=== PATIENT | male | born 1975 | race Caucasian/White ===

== ENCOUNTER 2020-01-23 13:20 | Emergency (ER) | payer SELFPAY ==
[2020-01-23] MEDS ORDERED: Lactated Ringers 1,000 ML IV ONE (13:30)
[2020-01-23] MEDS ORDERED: Famotidine 20 MG/2 ML SDV IVPUSH ONE (13:30)
[2020-01-23] MEDS ORDERED: Ondansetron 4 MG/2 ML SDV IVPUSH ONE (13:30)
[2020-01-23] MEDS ORDERED: cefTRIAXone 1 GM in Sodium Chloride 0.9% 100 ML IV ONE (13:30)
[2020-01-23] MEDS ORDERED: Pantoprazole 40 MG Vial IVPUSH ONE (13:30)
--- NOTE | 2020-01-23 13:30 | EDM.PDOC ---
ED HPI GENERAL MEDICAL PROBLEM - General Chief Complaint: Behavioral/Psych Stated Complaint: hallucinations, recent hospitalization Time Seen by Provider: 01/23/20 13:20 Source of Information: Reports: Patient, EMS, Family (Sister , Shanti, by telephone). Denies: EMS Notes Reviewed (Not available at time of dictation), Old Records (No [facility] records available) History Limitations: Reports: No Limitations - History of Present Illness INITIAL COMMENTS - FREE TEXT/NARRATIVE: The patient was brought to the emergency room via ambulance with appeals examiner accompaniment with no treatment in route. He was apparently just discharged from [facility] in [place] on 01/21 for possible upper GI bleed with episode of mild hematemesis with concomitant possible seizure shortly prior to arrival to this facility. Per history from the sister there was about 1 cup of blood noted. Note that the patient did have an EGD in [place] by his history no apparent esophageal varicosity, ulcer, etc. He denies any alcohol use since hospital discharge, however he has been having both auditory and visual hallucinations shortly prior to arrival and did become somewhat combative and aggressive with his family prior to his sister calling 911. No recent history of abdominal pain, heartburn, nausea, diarrhea, melena, gross hematochezia, or any food intolerance, including fatty foods, etc.. The patient denies any chest pain/pressure, heart flutter, dizziness, orthostasis, orthopnea, diaphoresis, paresthesias, recent decreased exercise tolerance, or any other anginal-type symptoms. He denies any gross hematuria, colic, or UTI symptoms. The patient also denies any recent cough, wheezing, dyspnea, aspiration, etc., although possible fever with temperature not measured. No history of recent headaches, visual changes, diplopia, change in mental status, or other change in neurological status, however note possible seizure versus pseudoseizure postictal sedation fall, head injury, etc. He denies pain or discomfort. Onset: Gradual, Unknown/Unsure Onset Date: 01/23/20 Onset Time: 12:00 Duration: Other (No pain) Location: Reports: Other (No pain) Quality: Reports: Same as Previous Episode Improves with: Reports: None Worsens with: Reports: None Associated Symptoms: Reports: Fever/Chills, Nausea/Vomiting (With hematemesis), Seizure (Possible). Denies: Confusion, Chest Pain, Cough, Diaphoresis, Headaches, Loss of Appetite, Shortness of Breath, Weakness Treatments MINK RANCHER: Reports: Other (see below) (None) - Related Data Allergies Allergy/AdvReac Type Severity Reaction Status Date / Time No Known Allergies Allergy Verified 01/23/20 13:50 Home Meds: Home Meds Nicotine [Nicotine Patch] 21 mg TD ASDIRECTED 01/23/20 [History] Pantoprazole Sodium [Protonix] 40 mg PO DAILY 01/23/20 [History] Past Medical History HEENT History: Reports: Hard of Hearing. Denies: Impaired Vision Cardiovascular History: Denies: Aneurysm, Arrhythmia, Blood Clots/VTE/DVT, CAD, Hypertension, Syncope Respiratory History: Reports: None. Denies: Asthma, COPD, PE Gastrointestinal History: Reports: GERD, GI Bleed, PUD, Other (See Below). Denies: Hepatitis, Pancreatitis Other Gastrointestinal History: Probable upper GI bleed in December 2019 with hospital discharge from [facility] in [place], [place] on 01/22/20. Possible erosive esophagitis with no apparent varicoceles by EGD. Genitourinary History: Reports: None. Denies: Acute Renal Failure, Chronic Renal Insuffiency, Renal Calculus, STD Musculoskeletal History: Reports: Fracture, Other (See Below). Denies: Arthritis, Osteoarthritis Other Musculoskeletal History: Right fourth metacarpal fracture. Neurological History: Reports: None, Other (See Below). Denies: Cerebral Aneurysms, Concussion, CVA, Head Trauma, Migraines, Seizure, TIA Other Neuro History: No known previous history of seizures or DTs despite alcohol history as above. Psychiatric History: Reports: Addiction, Anxiety, Depression, Emotional Problems , Hallucinations, Other (See Below). Denies: Abuse, Victim of, ADD, ADHD, Dementia, Psych Hospitalization(s), PTSD, Suicide Attempt, Suicidal Ideation Other Psychiatric History: History of alcohol abuse since about age 21 with previous outpatient alcohol treatment program. Endocrine/Metabolic History: Denies: Diabetes, Type I, Diabetes, Type II, Hypothyroidism, IDDM Hematologic History: Denies: Anemia, Blood Transfusion(s), Iron Deficiency Immunologic History: Reports: Immunosuppression, Other (See Below). 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 Oncologic (Cancer) History: Reports: None Dermatologic History: Reports: None. Denies: Eczema, Psoriasis - Infectious Disease History Infectious Disease History: Reports: Mononucleosis. Denies: C-Difficile, Meningitis, MRSA, RSV, TB - Past Surgical History Head Surgeries/Procedures: Reports: None HEENT Surgical History: Reports: Adenoidectomy, Tonsillectomy, Other (See Below) . Denies: Myringotomy w Tube(s), Oral Surgery Other HEENT Surgeries/Procedures: Tonsillectomy and adenoidectomy as a child. Cardiovascular Surgical History: Reports: None. Denies: Varicose Respiratory Surgical History: Reports: None. Denies: Thoracentesis GI Surgical History: Reports: EGD, Other (See Below). Denies: Appendectomy, Cholecystectomy, Hernia, Abdominal, Hernia, Inguinal, Hernia Repair/Other Other GI Surgeries/Procedures: EGD in December 2019 with results as above. Male Surgical History: Reports: Circumcision, Other (See Below). Denies: Vasectomy Other Male Surgeries/Procedures: Circumcision as an infant Neurological Surgical History: Reports: None. Denies: C-Spine Musculoskeletal Surgical History: Reports: ORIF. Denies: Arthroscopic Procedure , Carpal Tunnel, Ganglion Cyst, Joint Replacement, Shoulder Surgery Other Musculoskeletal Surgeries/Procedures:: Pin Placement of the right fourth metacarpal bone. Oncologic Surgical History: Reports: None Dermatological Surgical History: Reports: None - Past Imaging History Past Imaging History: Reports: CAT Scan (Possible CT of the head at [facility] in December versus January 2020) Social & Family History - Tobacco Use Smoking Status *Q: Current Every Day Smoker Tobacco Use Within Last Twelve Months: Smokeless Tobacco Years of Tobacco use: 33 Packs/Tins Daily: 0.1 Packs/Tins Daily Comment: Started chewing tobacco at about age 12 with current use of one can per week but previous moderate use Used Tobacco, but Quit: No Smoking Cessation Information Provided To Patient: No (To be provided by accepting physicians at discharge) Second Hand Smoke Exposure: No Second Hand Smoke Education Provided: No - Alcohol Use Alcohol Use History: Yes Days Per Week of Alcohol Use: 7 Number of Drinks Per Day: 10 Number of Drinks Per Day Comment: History of alcohol abuse since age 21 as above with at least 10 shots of hard liquor per day by history from his sister. DWI at age 21 and then in 2018. Outpatient alcohol treatment as above. Total Drinks Per Week: 70 Date of Last Drink: 01/20/20 Date/Time of Last Drink Comment: No alcohol use since hospital discharge on 01/21 Alcohol Use in Last Twelve Months: Yes Alcohol Use Frequency: Binges - Living Situation & Occupation Living situation: Reports: Other (Homeless) Occupation: Unemployed ED ROS GENERAL - Review of Systems Review Of Systems: Comprehensive ROS is negative, except as noted in HPI. ED EXAM, GENERAL - Physical Exam Exam: See Below Exam Limited By: No Limitations General Appearance: Alert, WD/WN, No Apparent Distress, Anxious (Moderate) Eye Exam: Bilateral Eye: EOMI, Normal Fundi, Normal Inspection (No nystagmus), PERRL Ears: Normal External Exam, Normal Canal, Hearing Grossly Normal, Normal TMs Nose: Normal Inspection, Normal Mucosa, No Blood Throat/Mouth: Normal Inspection, Normal Lips, Normal Teeth, Normal Gums, Normal Oropharynx, Normal Voice, No Airway Compromise. No: Dysphagia, Perioral Cyanosis Head: Atraumatic, Normocephalic. No: Facial Swelling, Facial Tenderness, Sinus Tenderness Neck: Normal Inspection, Supple, Non-Tender, Full Range of Motion. No: Carotid Bruit, Lymphadenopathy (L), Lymphadenopathy (R), Thyromegaly Respiratory/Chest: No Respiratory Distress, Lungs Clear, Normal Breath Sounds, No Accessory Muscle Use, Chest Non-Tender. No: Pleural Rub, Retractions Cardiovascular: Normal Peripheral Pulses, Regular Rate, Rhythm, No Edema, No Gallop, No JVD, No Murmur, No Rub. No: Gallop/S3, Gallop/S4, Friction Rub Peripheral Pulses: 2+: Radial (L), Radial (R) GI/Abdominal: Normal Bowel Sounds, Soft, Non-Tender, No Organomegaly, No Distention, No Abnormal Bruit, No Mass, Pelvis Stable. No: Guarding (Male) Exam: Deferred Rectal (Males) Exam: Deferred Back Exam: Normal Inspection, Full Range of Motion. No: CVA Tenderness (L), CVA Tenderness (R), Muscle Spasm Extremities: Normal Inspection, Normal Range of Motion, Non-Tender, No Pedal Edema, Normal Capillary Refill. No: Ashlyn's Sign Neurological: Alert, Oriented, CN II-XII Intact, Normal Cognition, Normal Gait, Normal Reflexes (Negative Babinski's, finger to nose, and pronator rotation tests. No evidence of facial paresis, tongue deviation, orthostasis, etc.. Excellent reverse thought processes.), No Motor/Sensory Deficits, Other (No Postictal sedation noted either by this physician or paramedics) Psychiatric: Anxious (Moderate to severe), Depressed Mood (Moderate to severe) Skin Exam: Warm, Dry, Intact, Normal Color, No Rash. No: Diaphoretic, Ecchymosis, Jaundice, Pallor, Petechiae, Wound/Incision Lymphatic: No Adenopathy EKG INTERPRETATION EKG Date: 01/23/20 Time: 13:50 Rhythm: NSR Rate (Beats/Min): 97 Garita: Normal (Left) P-Wave: Present QRS: Normal (0.09 seconds mild repolarization changes) ST-T: Normal (T-wave inversion in leads 3 and V1) QT: Normal MS/PQ Interval: 0.17 seconds with mild poor R-wave progression in the anterior leads Comparison: NA - No Prior EKG EKG Interpretation Comments: No acute ischemic changes Course - Vital Signs Last Recorded V/S: Last Vital Signs Temp 37.4 C 01/23/20 13:27 Pulse 76 01/23/20 14:56 Resp 20 01/23/20 14:56 BP 115/75 01/23/20 14:56 Pulse Ox 98 01/23/20 14:56 Vital Signs - 24 hr 01/23/20 01/23/20 01/23/20 13:27 13:41 13:56 Temperature [ 37.4 C Oral] Pulse, 107 H 105 H 101 H Peripheral [ Pulse Oximetry] Respiratory 20 18 19 Rate Blood Pressure 145/92 H 140/87 130/76 [Left Upper Arm ] O2 Sat by Pulse 96 97 98 Oximetry 01/23/20 01/23/20 14:26 14:56 Temperature [ Oral] Pulse, 87 76 Peripheral [ Pulse Oximetry] Respiratory 20 20 Rate Blood Pressure 126/78 115/75 [Left Upper Arm ] O2 Sat by Pulse 98 98 Oximetry - Orders/Labs/Meds Orders: Active Orders 24 hr Category Date Time Status Cardiac Monitoring [RC] . DIRECTED Care 01/23/20 14:29 Active EKG Documentation Completion [RC] ASDIRECTED Care 01/23/20 13:35 Active Peripheral IV Care [RC] . DIRECTED Care 01/23/20 13:32 Active Nothing Per Oral Diet [DIET] Diet 01/23/20 Breakfast Active Abdomen Series w Chest 1V [CR] Stat Exams 01/23/20 13:31 Taken PROLACTIN [REF] Stat Lab 01/23/20 13:40 Received Sodium Chloride 0.9% [Saline Flush] Med 01/23/20 13:30 Active 10 ml FLUSH ASDIRECTED PRN Obtain Past Medical Record [OM.PC] Urgent Oth 01/23/20 13:31 Active Peripheral IV Insertion Adult [OM.PC] Stat Oth 01/23/20 13:31 Ordered Resuscitation Status Stat Resus Stat 01/23/20 13:30 Ordered Medication Orders Sodium Chloride (Saline Flush) 10 ml FLUSH ASDIRECTED PRN PRN Reason: Keep Vein Open Last Admin: 01/23/20 14:27 Dose: 10 ml Admin: 01/23/20 14:18 Dose: 10 ml Labs: Laboratory Tests 01/23/20 01/23/20 01/23/20 Range/Units 13:40 13:40 13:40 WBC 7.6 (4.0-10.2) K/uL RBC 3.12 L (4.33-5.41) M/uL Hgb 10.3 L (13.1-16.8) g/dL Hct 29.2 L (39.0-49.0) % MCV 93.6 (84.0-98.0) fL MCH 33.0 (28.2-33.3) pg MCHC 35.3 (31.7-36.0) g/dL RDW 13.8 (11.2-14.1) % Plt Count 110 L (150-350) K/uL Neut % (Auto) 81.3 H (45.0-80.0) % Lymph % (Auto) 12.0 (10.0-50.0) % Mifflin % (Auto) 6.1 (2.0-14.0) % Eos % (Auto) 0.5 (0.0-5.0) % Baso % (Auto) 0.1 (0.0-2.0) % Neut # (Auto) 6.15 (1.40-7.00) K/uL Lymph # (Auto) 0.91 (0.50-3.50) K/uL Mifflin # (Auto) 0.46 (0.00-1.00) K/uL Eos # (Auto) 0.04 (0.00-0.50) K/uL Baso # (Auto) 0.01 (0.00-0.20) K/uL PT 10.4 (9.5-12.0) SEC INR 1.0 APTT 23.3 L (24.5-32.8) SEC Sodium (136-145) mmol/L Potassium (3.5-5.1) mmol/L Chloride (98-107) mmol/L Carbon Dioxide (21.0-32.0) mmol/L BUN (7-18) mg/dL Creatinine (0.51-1.17) mg/dL Est Cr Clr Drug Dosing mL/min Estimated GFR (MDRD) mL/min Glucose (74-106) mg/dL Lactic Acid (0.4-2.0) mmol/L Uric Acid (2.6-7.2) mg/dL Calcium (8.5-10.1) mg/dL Magnesium (1.8-2.4) mg/dL Total Bilirubin (0.2-1.0) mg/dL AST (15-37) U/L ALT (12-78) U/L Alkaline Phosphatase (46-116) IU/L Total Protein (6.4-8.2) g/dL Albumin (3.4-5.0) g/dL Amylase 60 (25-115) U/L Lipase (73-393) U/L TSH, Ultra Sensitive (0.358-3.740) mIU/mL Ethyl Alcohol (0.000-0.080) g/dL 01/23/20 01/23/20 Range/Units 13:40 13:40 WBC (4.0-10.2) K/uL RBC (4.33-5.41) M/uL Hgb (13.1-16.8) g/dL Hct (39.0-49.0) % MCV (84.0-98.0) fL MCH (28.2-33.3) pg MCHC (31.7-36.0) g/dL RDW (11.2-14.1) % Plt Count (150-350) K/uL Neut % (Auto) (45.0-80.0) % Lymph % (Auto) (10.0-50.0) % Mifflin % (Auto) (2.0-14.0) % Eos % (Auto) (0.0-5.0) % Baso % (Auto) (0.0-2.0) % Neut # (Auto) (1.40-7.00) K/uL Lymph # (Auto) (0.50-3.50) K/uL Mifflin # (Auto) (0.00-1.00) K/uL Eos # (Auto) (0.00-0.50) K/uL Baso # (Auto) (0.00-0.20) K/uL PT (9.5-12.0) SEC INR APTT (24.5-32.8) SEC Sodium 137 (136-145) mmol/L Potassium 3.0 L (3.5-5.1) mmol/L Chloride 104 (98-107) mmol/L Carbon Dioxide 20.6 L (21.0-32.0) mmol/L BUN 11 (7-18) mg/dL Creatinine 0.93 (0.51-1.17) mg/dL Est Cr Clr Drug Dosing 89.09 mL/min Estimated GFR (MDRD) > 60 mL/min Glucose 105 (74-106) mg/dL Lactic Acid 1.6 (0.4-2.0) mmol/L Uric Acid 8.2 H (2.6-7.2) mg/dL Calcium 7.7 L (8.5-10.1) mg/dL Magnesium 2.0 (1.8-2.4) mg/dL Total Bilirubin 0.4 (0.2-1.0) mg/dL AST 49 H (15-37) U/L ALT 37 (12-78) U/L Alkaline Phosphatase 70 (46-116) IU/L Total Protein 7.1 (6.4-8.2) g/dL Albumin 3.3 L (3.4-5.0) g/dL Amylase (25-115) U/L Lipase 337 (73-393) U/L TSH, Ultra Sensitive 3.864 H (0.358-3.740) mIU/mL Ethyl Alcohol 0.000 (0.000-0.080) g/dL Meds: Medications Generic Name Dose Route Start Last Admin Trade Name Sherine PRN Reason Stop Dose Admin Sodium Chloride 10 ml 01/23/20 13:30 01/23/20 14:27 Saline Flush FLUSH 10 ml ASDIRECTED PRN Administration Keep Vein Open Discontinued Medications Generic Name Dose Route Start Last Admin Trade Name Sherine PRN Reason Stop Dose Admin Famotidine 40 mg 01/23/20 13:30 01/23/20 14:26 Pepcid IVPUSH 01/23/20 13:31 40 mg ONETIME ONE Administration Haloperidol Lactate 1 mg 01/23/20 13:32 01/23/20 14:23 Haldol IVPUSH 01/23/20 13:33 1 mg ONETIME ONE Administration Ceftriaxone Sodium 1 gm/ 100 mls @ 200 mls/hr 01/23/20 13:30 01/23/20 14:34 Sodium Chloride IV 01/23/20 13:59 200 mls/hr ONETIME ONE Administration Lactated Ringer's 1,000 mls @ 999 mls/hr 01/23/20 13:30 01/23/20 14:34 Ringers, Lactated IV 01/23/20 14:30 999 mls/hr .BOLUS ONE Administration Lorazepam 1 mg 01/23/20 13:33 01/23/20 13:59 Ativan IVPUSH 01/23/20 13:34 1 mg ONETIME ONE Administration Ondansetron HCl 4 mg 01/23/20 13:30 01/23/20 14:19 Zofran IVPUSH 01/23/20 13:31 4 mg ONETIME ONE Administration Pantoprazole Sodium 40 mg 01/23/20 13:30 01/23/20 13:58 Protonix Iv IVPUSH 01/23/20 13:31 40 mg ONETIME ONE Administration - Radiology Interpretation Free Text/Narrative:: Marine Operations Coordinator shows normal sinus rhythm in the 80-90s with no ectopy or arrhythmia Acute abdominal x-rays shows no evidence of cardiomegaly, CHF, pulmonary infiltrates, COPD, pneumothorax, free air, ileus, obstruction, etc., however foreign bodies 2 of unknown etiology possibly in the GI tract with no external substances noted. Preliminary telephone consultation with the radiology department at 14:40 hours notifying me of these foreign bodies, which I did notice at time of my initial evaluation. CT Results Date: 01/23/20 CT Results Time: 14:40 Departure - Departure Time of Disposition: 15:21 Disposition: DC/Tfer to Acute Hospital 02 Condition: Fair Clinical Impression: Alcohol abuse, Hallucinations, Tobacco abuse counseling, Mixed anxiety depressive disorder, Seizure, Hypokalemia, Hyperuricemia, Hypocalcemia GERD (gastroesophageal reflux disease) Qualifiers: Esophagitis presence: with esophagitis Qualified Code(s): K21.0 - Gastro- esophageal reflux disease with esophagitis Anemia Qualifiers: Anemia type: other cause Other causes of anemia: acute posthemorrhagic Qualified Code(s): D62 - Acute posthemorrhagic anemia - Discharge Information *PRESCRIPTION DRUG MONITORING PROGRAM REVIEWED*: Not Applicable *COPY OF PRESCRIPTION DRUG MONITORING REPORT IN PATIENT DARY: Not Applicable Referrals: PCP,Unknown [Primary Care Provider] - Forms: ED Department Discharge, Interfacility Transfer EMTALA Sepsis Event Note - Focused Exam Vital Signs: Vital Signs Temp Pulse Resp BP Pulse Ox 01/23/20 14:56 76 20 115/75 98 01/23/20 14:26 87 20 126/78 98 01/23/20 13:56 101 H 19 130/76 98 01/23/20 13:41 105 H 18 140/87 97 01/23/20 13:27 37.4 C 107 H 20 145/92 H 96 Date Exam was Performed: 01/23/20 Time Exam was Performed: 15:48 - Problem List & Annotations (1) GERD (gastroesophageal reflux disease) SNOMED Code(s): 091163732 Code(s): K21.9 - GASTRO-ESOPHAGEAL REFLUX DISEASE WITHOUT ESOPHAGITIS Status: Acute Priority: High Onset Date: ~01/20/20 Annotation/Comment:: Note recurrent hematemesis as below, including shortly prior to arrival to this facility. Apparent EGD as below. High-dose IV Pepcid and IV Protonix given in the emergency room with additional initiation of IV Rocephin secondary to patient's low-grade fever. He did not have an opportunity to fill the high-dose Protonix prescription after hospital discharge as above. Telephone consultation at 14:[address] Berman, hospitalist at [facility], who does accept the patient for direct admission, with no further treatment recommendations given. Note evidence of 2 metallic foreign bodies of unknown etiology possibly in the GI tract as above, however the patient denies any intentional ingestion of materials, etc.. Vital signs and physical exam were stable at time of transfer. Ambulance transfer with appeals examiner accompaniment. IV lactated Ringer's by IV bolus to be given in route after completion of his IV Rocephin secondary to hypokalemia as below. Note low-grade fever with no other signs of infection. Apparent negative recent COVID-19 screen in [place], however records not available. Qualifiers: Esophagitis presence: with esophagitis Qualified Code(s): K21.0 - Gastro- esophageal reflux disease with esophagitis (2) Anemia SNOMED Code(s): 820948002 Code(s): D64.9 - ANEMIA, UNSPECIFIED Status: Acute Priority: High Onset Date: ~01/23/20 Annotation/Comment:: Mild anemia with apparent history of recurrent hematemesis prior to hospitalization at [facility] in [facility] with discharge that facility on 01/22/20. EGD was apparently performed with evidence of probable esophagitis, however no apparent varices, gastric ulcer, etc.. Accepting providers should obtain records from the above hospitalization for further workup and/or GI consultation depending on his clinical course. Qualifiers: Anemia type: other cause Other causes of anemia: acute posthemorrhagic Qualified Code(s): D62 - Acute posthemorrhagic anemia (3) Seizure SNOMED Code(s): 50324957 Code(s): R56.9 - UNSPECIFIED CONVULSIONS Status: Acute Priority: High Onset Date: 01/23/20 Annotation/Comment:: Possible seizure versus pseudoseizure with known history of alcohol abuse, however no previous history of seizures, DTs, etc. No history of fall, injury, postictal sedation, neurological deficits, etc.. The patient apparently had a CT of the head in [place] prior to recent hospital discharge with records to be obtained by accepting providers. Further neurological consultation, workup, etc. per his clinical course. Low-dose IV Ativan given as seizure prophylaxis and for treatment of his emotional status as below. (4) Alcohol abuse SNOMED Code(s): 62739914 Code(s): F10.10 - ALCOHOL ABUSE, UNCOMPLICATED Status: Chronic Priority: High Annotation/Comment:: Alcohol treatment per patient and his family's request as above (5) Hallucinations SNOMED Code(s): 6508634 Code(s): R44.3 - HALLUCINATIONS, UNSPECIFIED Status: Acute Priority: High Onset Date: 01/23/20 Annotation/Comment:: Low-dose IV Haldol and IV Ativan given in the emergency room as above. (6) Mixed anxiety depressive disorder SNOMED Code(s): 284089168 Code(s): F41.8 - OTHER SPECIFIED ANXIETY DISORDERS Status: Chronic Priority: High Annotation/Comment:: Note significant alcohol abuse history as above. Per history from his sister patient has been homeless for the last few years with little family contact. The patient just found out yesterday after hospital discharge that his significant other from her alcohol and illicit drug abuse. The patient denies using any illicit drugs either currently or in the past despite this use by his significant other. Emotional support provided both to the patient and his sister by telephone. The family is requesting that the patient be treated for alcohol abuse and his anxiety depressive disorder either at [facility] and/or [place]. The patient denies suicidal ideation at this time, however he was combative and aggressive with his family prior to transfer to this facility. Mild TSH elevation with consideration of low-dose Synthroid supplementation and repeat TSH in about 4 weeks. (7) Tobacco abuse counseling SNOMED Code(s): 973525698, 085906069, 119506333 Code(s): Z71.6 - TOBACCO ABUSE COUNSELING Status: Chronic Priority: Medium Annotation/Comment:: Chewing tobacco cessation information of the provided at discharge from the accepting facility. His main treatment issue is alcohol abuse at this time, however. (8) Hyperuricemia SNOMED Code(s): 63054742 Code(s): E79.0 - HYPERURICEMIA W/O SIGNS OF INFLAM ARTHRIT AND TOPHACEOUS DIS Status: Acute Priority: Medium Onset Date: 01/23/20 Annotation/ Comment:: Likely secondary to his alcohol abuse. Observe for now. No significant arthritic complaints, gout attack, etc. (9) Hypocalcemia SNOMED Code(s): 7876236 Code(s): E83.51 - HYPOCALCEMIA Status: Acute Priority: Medium Onset Date: 01/23/20 Annotation/Comment:: Observe for now. (10) Hypokalemia SNOMED Code(s): 68442019 Code(s): E87.6 - HYPOKALEMIA Status: Acute Priority: High Onset Date: 01/23/20 Annotation/Comment:: Secondary to his alcohol abuse and emesis as above. IV lactated Ringer's in route as above. - Problem List Review Problem List Initiated/Reviewed/Updated: Yes - My Orders Last 24 Hours: My Active Orders 01/23/20 13:30 Sodium Chloride 0.9% [Saline Flush] 10 ml FLUSH ASDIRECTED PRN Resuscitation Status Stat 01/23/20 13:31 Abdomen Series w Chest 1V [CR] Stat Obtain Past Medical Record [OM.PC] Urgent Peripheral IV Insertion Adult [OM.PC] Stat 01/23/20 13:32 Peripheral IV Care [RC] . DIRECTED 01/23/20 13:35 EKG Documentation Completion [RC] ASDIRECTED 01/23/20 13:40 PROLACTIN [REF] Stat 01/23/20 14:29 Cardiac Monitoring [RC] . DIRECTED 01/23/20 Breakfast Nothing Per Oral Diet [DIET] - Assessment/Plan Last 24 Hours: My Active Orders 01/23/20 13:30 Sodium Chloride 0.9% [Saline Flush] 10 ml FLUSH ASDIRECTED PRN Resuscitation Status Stat 01/23/20 13:31 Abdomen Series w Chest 1V [CR] Stat Obtain Past Medical Record [OM.PC] Urgent Peripheral IV Insertion Adult [OM.PC] Stat 01/23/20 13:32 Peripheral IV Care [RC] . DIRECTED 01/23/20 13:35 EKG Documentation Completion [RC] ASDIRECTED 01/23/20 13:40 PROLACTIN [REF] Stat 01/23/20 14:29 Cardiac Monitoring [RC] . DIRECTED 01/23/20 Breakfast Nothing Per Oral Diet [DIET] Assessment:: As above Plan: As above.
[2020-01-23] MEDS ORDERED: Haloperidol Lactate 5 MG/ML SDV IVPUSH ONE (13:32)
[2020-01-23] MEDS ORDERED: LORazepam 2 MG/ML SDV IVPUSH ONE (13:33)
[2020-01-23 14:07] LABS: PTT,PARTIAL THROMBOPLSTIN TIME 23.3 SEC (24.5-32.8)
[2020-01-23] MEDS: Sodium Chloride 0.9% 10 ML Syringe FLUSH PRN ×2 (14:18→14:27)
[2020-01-23 14:20] LABS: CHLORIDE,CL 104 mmol/L (98-107); SODIUM,NA 137 mmol/L (136-145)
== END 2020-01-23 15:21 ==
LOC: LL.ED 13:20
DX: R44.3 Hallucinations, unspecified (principal); F41.8 Other specified anxiety disorders; F10.10 Alcohol abuse, uncomplicated; R56.9 Unspecified convulsions; E87.6 Hypokalemia; E79.0 Hyperuricemia without signs of inflammatory arthritis and tophaceous disease; E83.51 Hypocalcemia; K21.0 Gastro-esophageal reflux disease with esophagitis; D62 Acute posthemorrhagic anemia; F17.210 Nicotine dependence, cigarettes, uncomplicated; Z71.6 Tobacco abuse counseling; K21.9 Gastro-esophageal reflux disease without esophagitis; Z79.899 Other long term (current) drug therapy
CPT/HCPCS: 36415; 74022; 80053; 80307; 82150; 83605; 83690; 83735; 84146; 84443; 84550; 85025; 85610; 85730; 93005; 96365; 96375; 99285-25; C9113; J0696; J1630; J2060; J2405; J3490; J7050; J7120

== ENCOUNTER 2020-04-01 17:24 | Emergency (ER) | payer BC ==
[2020-04-01] MEDS ORDERED: Lactated Ringers 1,000 ML IV ONE (17:42)
[2020-04-01] MEDS ORDERED: Pantoprazole 40 MG Vial IVPUSH ONE (17:42)
[2020-04-01] MEDS ORDERED: Famotidine 20 MG/2 ML SDV IVPUSH ONE (17:42)
--- NOTE | 2020-04-01 17:44 | EDM.PDOC ---
ED HPI GENERAL MEDICAL PROBLEM - General Chief Complaint: Drug or Alcohol Abuse Stated Complaint: intoxication Time Seen by Provider: 04/01/20 17:40 Source of Information: Reports: Patient, Family (Father), Old Records ([facility] EMR. No paper hospital chart available.) History Limitations: Reports: Intoxication - History of Present Illness INITIAL COMMENTS - FREE TEXT/NARRATIVE: The patient was brought to the emergency room via private automobile by a friend, Calvin Vang, secondary to severe intoxication, with patient being a poor historian secondary to his current intoxication. He apparently drank at least 2 bottles of wine and about 750 ml of straight vodka earlier today with frequent intoxication since discharge from [facility] in [place] about one month ago. He has been living with his father since that time with the patient unaware until now that he had a relapse in his alcohol abuse. He denies any pain or discomfort, including abdominal pain, etc. despite his previous history of GI bleed as below. The patient also denies any recent fever, cough, wheezing, dyspnea, etc.. He denies any pain or discomfort. No apparent history of fall, head injury, etc. Onset: Today, Unknown/Unsure Duration: Getting Worse Quality: Reports: Same as Previous Episode Severity: Severe (Intoxication) Improves with: Reports: None Worsens with: Reports: None Context: Reports: Other (As above). Denies: Sick Contact, Trauma Associated Symptoms: Reports: No Other Symptoms. Denies: Confusion, Fever/Chills, Headaches, Nausea/Vomiting, Shortness of Breath Treatments TECHNICAL ACCOUNT EXECUTIVE: Reports: Other (see below) (None) - Related Data Allergies Allergy/AdvReac Type Severity Reaction Status Date / Time No Known Allergies Allergy Verified 04/01/20 17:25 Home Meds: Home Meds Pantoprazole Sodium [Protonix] 40 mg PO DAILY 01/23/20 [History] Past Medical History HEENT History: Reports: Hard of Hearing. Denies: Impaired Vision Cardiovascular History: Reports: None. Denies: Aneurysm, Arrhythmia, Blood Clots/VTE/DVT, CAD, Hypertension, Syncope Respiratory History: Reports: None. Denies: Asthma, COPD, PE Gastrointestinal History: Reports: GERD, GI Bleed, PUD, Other (See Below). Denies: Hepatitis, Pancreatitis Other Gastrointestinal History: Probable upper GI bleed in December 2019 with hospital discharge from [facility] in [place], [place] on 01/22/20. Possible erosive esophagitis with no apparent varicoceles by EGD. Genitourinary History: Reports: None. Denies: Acute Renal Failure, Chronic Renal Insuffiency, Renal Calculus, STD Musculoskeletal History: Reports: Fracture, Gout, Other (See Below). Denies: Arthritis, Osteoarthritis Other Musculoskeletal History: Right fourth metacarpal fracture. Neurological History: Reports: Seizure, Other (See Below). Denies: Cerebral Aneurysms, Concussion, CVA, Head Trauma, Migraines, TIA Other Neuro History: Possible seizure versus pseudoseizure on 01/23/20 with no known previous history of seizures or DTs despite alcohol abuse history. Psychiatric History: Reports: Addiction, Anxiety, Depression, Emotional Problems, Hallucinations, Other (See Below). Denies: Abuse, Victim of, ADD, ADHD, Dementia, Psych Hospitalization(s), PTSD, Suicide Attempt, Suicidal Ideation Other Psychiatric History: History of alcohol abuse since about age 21 with previous outpatient alcohol treatment program and previous 30 day inpatient alcohol and psychiatric treatment at [facility] in January 2020. Hallucinations secondary to alcohol abuse in early 2019. Endocrine/Metabolic History: Reports: Hypokalemia, Other (See Below) Other Endocrine/Metabolic History: Hypocalcemia. Hematologic History: Denies: Anemia, Heparin Induced Thrombocytopenia, Iron Deficiency Immunologic History: Reports: Immunosuppression, Other (See Below). Denies: AIDS, HIV, SLE Other Immunologic History: Alcohol abuse. Immunoglobulin deficiency by patient history? Oncologic (Cancer) History: Reports: None Dermatologic History: Reports: None. Denies: Eczema, Psoriasis - Infectious Disease History Infectious Disease History: Reports: Mononucleosis. Denies: C-Difficile, Meningitis, MRSA, RSV, TB - Past Surgical History Head Surgeries/Procedures: Reports: None HEENT Surgical History: Reports: Adenoidectomy, Tonsillectomy, Other (See Below). Denies: Myringotomy w Tube(s), Oral Surgery Other HEENT Surgeries/Procedures: Tonsillectomy and adenoidectomy as a child. Cardiovascular Surgical History: Reports: None. Denies: Varicose Respiratory Surgical History: Reports: None. Denies: Thoracentesis GI Surgical History: Reports: EGD, Other (See Below). Denies: Appendectomy, Cholecystectomy, Hernia, Abdominal, Hernia, Inguinal, Hernia Repair/Other Other GI Surgeries/Procedures: EGD in December 2019 with results as above. Male Surgical History: Reports: Circumcision, Other (See Below). Denies: Vasectomy Other Male Surgeries/Procedures: Circumcision as an infant Neurological Surgical History: Reports: None. Denies: C-Spine Musculoskeletal Surgical History: Reports: ORIF. Denies: Arthroscopic Procedure, Carpal Tunnel, Ganglion Cyst, Joint Replacement, Shoulder Surgery Other Musculoskeletal Surgeries/Procedures:: Pin Placement of the right fourth metacarpal bone. Oncologic Surgical History: Reports: None Dermatological Surgical History: Reports: None - Past Imaging History Past Imaging History: Reports: CAT Scan (Possible CT of the head at [facility] in December versus January 2020) Social & Family History - Tobacco Use Smoking Status *Q: Current Every Day Smoker Tobacco Use Within Last Twelve Months: Snuff/Dip Years of Tobacco use: 33 Packs/Tins Daily: 0.1 Packs/Tins Daily Comment: Start chewing tobacco use at about age 12 with current use of one can per week but previous moderate diffuse. Used Tobacco, but Quit: No Smoking Cessation Information Provided To Patient: No Smoking Cessation Information Given Comment: To be provided by accepting providers. Second Hand Smoke Exposure: No Second Hand Smoke Education Provided: No - Alcohol Use Alcohol Use History: Yes Days Per Week of Alcohol Use: 7 Number of Drinks Per Day: 10 Number of Drinks Per Day Comment: History of alcohol abuse since age 21 with at least 10 shots of hard liquor per day by previous history. DWI at age 21 and then in 2018. Alcohol treatment as above. Total Drinks Per Week: 70 Date of Last Drink: 04/01/20 Alcohol Use in Last Twelve Months: Yes Alcohol Use Frequency: Binges - Living Situation & Occupation Living situation: Reports: (2 children), with Family (Lives with parents since discharge from [facility] in [place] in February 2020. Previous homelessness.) Occupation: Unemployed ED ROS GENERAL - Review of Systems Review Of Systems: Unable To Obtain Reason Not Obtained: Intoxication, patient combativeness ED EXAM, GENERAL - Physical Exam Exam: See Below Exam Limited By: Intoxication General Appearance: Anxious (Severe), Lethargic, Other (Severe intoxication) Head: Atraumatic, Normocephalic. No: Facial Swelling, Facial Tenderness, Sinus Tenderness Neck: Normal Inspection, Supple, Non-Tender, Full Range of Motion. No: Lymphadenopathy (L), Lymphadenopathy (R), Thyromegaly Respiratory/Chest: No Respiratory Distress, Lungs Clear, Normal Breath Sounds, No Accessory Muscle Use, Chest Non-Tender. No: Pleural Rub, Retractions Cardiovascular: Normal Peripheral Pulses, Regular Rate, Rhythm, No Edema, No Gallop, No JVD, No Murmur, No Rub. No: Gallop/S3, Gallop/S4, Friction Rub Peripheral Pulses: 2+: Radial (L), Radial (R) GI/Abdominal: Normal Bowel Sounds, Soft, Non-Tender, No Organomegaly, No Distention, No Abnormal Bruit, No Mass, Pelvis Stable, Other (Possible ascites). No: Guarding (Male) Exam: Deferred Rectal (Males) Exam: Deferred Back Exam: Normal Inspection, Full Range of Motion. No: CVA Tenderness (L), CVA Tenderness (R), Muscle Spasm Extremities: Normal Inspection, Normal Range of Motion, Non-Tender, No Pedal Edema, Normal Capillary Refill. No: Ashlyn's Sign Neurological: Oriented, CN II-XII Intact, Normal Cognition, Normal Reflexes, No Motor/Sensory Deficits, Other (Severe intoxication). No: Normal Gait (Secondary to intoxication) Psychiatric: Anxious (Moderate), Depressed Mood (Severe), Tearful Skin Exam: Warm, Dry, Intact, Normal Color, No Rash. No: Diaphoretic, Ecchymosis, Jaundice, Lymphangitis, Petechiae, Wound/Incision Lymphatic: No Adenopathy Course - Vital Signs Last Recorded V/S: Last Vital Signs Temp 36.5 C 04/01/20 17:29 Pulse 81 04/01/20 17:29 Resp 14 04/01/20 17:29 BP 128/80 04/01/20 17:29 Pulse Ox 98 04/01/20 17:29 Vital Signs - 24 hr 04/01/20 17:29 Temperature [ 36.5 C Temporal] Pulse, 81 Peripheral [ Pulse Oximetry] Respiratory 14 Rate Blood Pressure 128/80 [Left Upper Arm ] O2 Sat by Pulse 98 Oximetry Patient refused further blood pressures, etc. - Orders/Labs/Meds Orders: Active Orders 24 hr Category Date Time Status Cardiac Monitoring [RC] . DIRECTED Care 04/01/20 18:46 Active Peripheral IV Care [RC] . DIRECTED Care 04/01/20 17:43 Active Obtain Past Medical Record [OM.PC] Urgent Oth 04/01/20 17:42 Active Peripheral IV Insertion Adult [OM.PC] Stat Oth 04/01/20 17:42 Ordered Resuscitation Status Stat Resus Stat 04/01/20 17:42 Ordered Labs: Laboratory Tests 04/01/20 04/01/20 04/01/20 Range/Units 17:55 17:55 17:55 WBC 6.1 (4.0-10.2) K/uL RBC 4.78 (4.33-5.41) M/uL Hgb 13.8 D (13.1-16.8) g/dL Hct 41.3 (39.0-49.0) % MCV 86.4 D (84.0-98.0) fL MCH 28.9 (28.2-33.3) pg MCHC 33.4 (31.7-36.0) g/dL RDW 14.1 (11.2-14.1) % Plt Count 201 D (150-350) K/uL Neut % (Auto) 50.7 (45.0-80.0) % Lymph % (Auto) 40.0 (10.0-50.0) % [place] % (Auto) 5.9 (2.0-14.0) % Eos % (Auto) 3.1 (0.0-5.0) % Baso % (Auto) 0.3 (0.0-2.0) % Neut # (Auto) 3.11 (1.40-7.00) K/uL Lymph # (Auto) 2.45 (0.50-3.50) K/uL [place] # (Auto) 0.36 (0.00-1.00) K/uL Eos # (Auto) 0.19 (0.00-0.50) K/uL Baso # (Auto) 0.02 (0.00-0.20) K/uL PT 9.3 L (9.5-12.0) SEC INR 0.9 APTT 24.7 (24.5-32.8) SEC Sodium (136-145) mmol/L Potassium (3.5-5.1) mmol/L Chloride (98-107) mmol/L Carbon Dioxide (21.0-32.0) mmol/L BUN (7-18) mg/dL Creatinine (0.51-1.17) mg/dL Est Cr Clr Drug Dosing Estimated GFR (MDRD) mL/min Glucose (74-106) mg/dL Lactic Acid (0.4-2.0) mmol/L Uric Acid (2.6-7.2) mg/dL Calcium (8.5-10.1) mg/dL Magnesium (1.8-2.4) mg/dL Total Bilirubin (0.2-1.0) mg/dL AST (15-37) U/L ALT (12-78) U/L Alkaline Phosphatase (46-116) IU/L Ammonia (11-32) umol/L Total Protein (6.4-8.2) g/dL Albumin (3.4-5.0) g/dL Amylase 95 (25-115) U/L Lipase (73-393) U/L Urine Opiates Screen (NEGATIVE) Ur Buprenorphine Scrn (NEGATIVE) Ur Oxycodone Screen (NEGATIVE) Ur EDDP (Meth Metab) (NEGATIVE) Ur Barbiturates Screen (NEGATIVE) Ur Tricyclics Screen (NEGATIVE) Ur Amphetamine Screen (NEGATIVE) U Methamphetamines Scrn (NEGATIVE) Urine MDMA Screen (NEGATIVE) U Benzodiazepines Scrn (NEGATIVE) U Cocaine Metab Screen (NEGATIVE) U Marijuana (THC) Screen (NEGATIVE) Ethyl Alcohol (0.000-0.080) g/dL 04/01/20 04/01/20 04/01/20 Range/Units 17:55 17:55 17:55 WBC (4.0-10.2) K/uL RBC (4.33-5.41) M/uL Hgb (13.1-16.8) g/dL Hct (39.0-49.0) % MCV (84.0-98.0) fL MCH (28.2-33.3) pg MCHC (31.7-36.0) g/dL RDW (11.2-14.1) % Plt Count (150-350) K/uL Neut % (Auto) (45.0-80.0) % Lymph % (Auto) (10.0-50.0) % [place] % (Auto) (2.0-14.0) % Eos % (Auto) (0.0-5.0) % Baso % (Auto) (0.0-2.0) % Neut # (Auto) (1.40-7.00) K/uL Lymph # (Auto) (0.50-3.50) K/uL [place] # (Auto) (0.00-1.00) K/uL Eos # (Auto) (0.00-0.50) K/uL Baso # (Auto) (0.00-0.20) K/uL PT (9.5-12.0) SEC INR APTT (24.5-32.8) SEC Sodium 145 (136-145) mmol/L Potassium 4.0 (3.5-5.1) mmol/L Chloride 108 H (98-107) mmol/L Carbon Dioxide 25.6 (21.0-32.0) mmol/L BUN 8 (7-18) mg/dL Creatinine 1.00 (0.51-1.17) mg/dL Est Cr Clr Drug Dosing TNP Estimated GFR (MDRD) > 60 mL/min Glucose 114 H (74-106) mg/dL Lactic Acid 1.6 (0.4-2.0) mmol/L Uric Acid 6.9 (2.6-7.2) mg/dL Calcium 8.3 L (8.5-10.1) mg/dL Magnesium 2.1 (1.8-2.4) mg/dL Total Bilirubin 0.2 (0.2-1.0) mg/dL AST 23 (15-37) U/L ALT 23 (12-78) U/L Alkaline Phosphatase 75 (46-116) IU/L Ammonia 33 H (11-32) umol/L Total Protein 8.5 H (6.4-8.2) g/dL Albumin 4.0 (3.4-5.0) g/dL Amylase (25-115) U/L Lipase 231 (73-393) U/L Urine Opiates Screen (NEGATIVE) Ur Buprenorphine Scrn (NEGATIVE) Ur Oxycodone Screen (NEGATIVE) Ur EDDP (Meth Metab) (NEGATIVE) Ur Barbiturates Screen (NEGATIVE) Ur Tricyclics Screen (NEGATIVE) Ur Amphetamine Screen (NEGATIVE) U Methamphetamines Scrn (NEGATIVE) Urine MDMA Screen (NEGATIVE) U Benzodiazepines Scrn (NEGATIVE) U Cocaine Metab Screen (NEGATIVE) U Marijuana (THC) Screen (NEGATIVE) Ethyl Alcohol 0.430 H (0.000-0.080) g/dL 04/01/20 Range/Units 20:15 WBC (4.0-10.2) K/uL RBC (4.33-5.41) M/uL Hgb (13.1-16.8) g/dL Hct (39.0-49.0) % MCV (84.0-98.0) fL MCH (28.2-33.3) pg MCHC (31.7-36.0) g/dL RDW (11.2-14.1) % Plt Count (150-350) K/uL Neut % (Auto) (45.0-80.0) % Lymph % (Auto) (10.0-50.0) % [place] % (Auto) (2.0-14.0) % Eos % (Auto) (0.0-5.0) % Baso % (Auto) (0.0-2.0) % Neut # (Auto) (1.40-7.00) K/uL Lymph # (Auto) (0.50-3.50) K/uL [place] # (Auto) (0.00-1.00) K/uL Eos # (Auto) (0.00-0.50) K/uL Baso # (Auto) (0.00-0.20) K/uL PT (9.5-12.0) SEC INR APTT (24.5-32.8) SEC Sodium (136-145) mmol/L Potassium (3.5-5.1) mmol/L Chloride (98-107) mmol/L Carbon Dioxide (21.0-32.0) mmol/L BUN (7-18) mg/dL Creatinine (0.51-1.17) mg/dL Est Cr Clr Drug Dosing Estimated GFR (MDRD) mL/min Glucose (74-106) mg/dL Lactic Acid (0.4-2.0) mmol/L Uric Acid (2.6-7.2) mg/dL Calcium (8.5-10.1) mg/dL Magnesium (1.8-2.4) mg/dL Total Bilirubin (0.2-1.0) mg/dL AST (15-37) U/L ALT (12-78) U/L Alkaline Phosphatase (46-116) IU/L Ammonia (11-32) umol/L Total Protein (6.4-8.2) g/dL Albumin (3.4-5.0) g/dL Amylase (25-115) U/L Lipase (73-393) U/L Urine Opiates Screen Negative (NEGATIVE) Ur Buprenorphine Scrn Negative (NEGATIVE) Ur Oxycodone Screen Negative (NEGATIVE) Ur EDDP (Meth Metab) Negative (NEGATIVE) Ur Barbiturates Screen Negative (NEGATIVE) Ur Tricyclics Screen Negative (NEGATIVE) Ur Amphetamine Screen Negative (NEGATIVE) U Methamphetamines Scrn Negative (NEGATIVE) Urine MDMA Screen Negative (NEGATIVE) U Benzodiazepines Scrn Negative (NEGATIVE) U Cocaine Metab Screen Negative (NEGATIVE) U Marijuana (THC) Screen Negative (NEGATIVE) Ethyl Alcohol (0.000-0.080) g/dL Meds: Medications Discontinued Medications Generic Name Dose Route Start Last Admin Trade Name Sherine PRN Reason Stop Dose Admin Diazepam 5 mg 04/01/20 18:03 04/01/20 18:05 Valium IVPUSH 04/01/20 18:04 5 mg ONETIME ONE Administration Diazepam 2.5 mg 04/01/20 18:45 04/01/20 18:49 Valium IVPUSH 04/01/20 18:46 2.5 mg ONETIME ONE Administration Famotidine 40 mg 04/01/20 17:42 04/01/20 18:12 Pepcid IVPUSH 04/01/20 17:43 40 mg ONETIME ONE Administration Haloperidol Lactate 2 mg 04/01/20 19:05 04/01/20 19:19 Haldol IVPUSH 04/01/20 19:06 2 mg ONETIME ONE Administration Lactated Ringer's 1,000 mls @ 999 mls/hr 04/01/20 17:42 04/01/20 18:24 Ringers, Lactated IV 04/01/20 18:42 999 mls/hr .BOLUS ONE Administration Lactated Ringer's 1,000 mls @ 80 mls/hr 04/01/20 20:15 04/01/20 20:02 Ringers, Lactated IV 80 mls/hr ASDIRECTED VOLODYMYR Administration Pantoprazole Sodium 40 mg 04/01/20 17:42 04/01/20 18:12 Protonix Iv IVPUSH 04/01/20 17:43 40 mg ONETIME ONE Administration Sodium Chloride 10 ml 04/01/20 17:42 04/01/20 18:24 Saline Flush FLUSH 10 ml ASDIRECTED PRN Administration Keep Vein Open - Radiology Interpretation Free Text/Narrative:: surveillance system monitor shows normal sinus rhythm with heart rate in the 80s to 90s with no ectopy or arrhythmia. Occasional tachycardia in the low 100s when the patient becomes combative. Departure - Departure Time of Disposition: 20:25 Disposition: DC/Tfer to Acute Hospital 02 Condition: Fair Clinical Impression: Mixed anxiety depressive disorder, Alcohol abuse, Hyperuricemia GERD (gastroesophageal reflux disease) Qualifiers: Esophagitis presence: with esophagitis Qualified Code(s): K21.0 - Gastro- esophageal reflux disease with esophagitis - Discharge Information *PRESCRIPTION DRUG MONITORING PROGRAM REVIEWED*: Not Applicable *COPY OF PRESCRIPTION DRUG MONITORING REPORT IN PATIENT DARY: Not Applicable Referrals: PCP,Unknown [Primary Care Provider] - Forms: Interfacility Transfer [facility] Sepsis Event Note (ED) - Evaluation Sepsis Screening Result: No Definite Risk - Focused Exam Vital Signs: Vital Signs Temp Pulse Resp BP Pulse Ox 04/01/20 17:29 36.5 C 81 14 128/80 98 - Problem List & Annotations (1) Alcohol abuse SNOMED Code(s): 73817217 Code(s): F10.10 - ALCOHOL ABUSE, UNCOMPLICATED Status: Chronic Priority: High Annotation/Comment:: Patient initially combative, uncooperative, and threatening, including throwing pillows at staff, throwing off his mask, refusing treatment, etc.. Improved cooperation, etc. after IV Valium was given. Thereafter the medication became combative and physically threatening his mother and this physician, including threatening to break my finger Repeat low dose diazepam and additional IV Haldol were required prior to transfer. Enforcement was contacted for staff safety. Alcohol treatment per patient and his family's request, however secondary to significant alcohol level the patient is not a candidate for direct admission to [facility] in [place]. Telephone consultation at 18:[address] Mancilla, hospitalist at [facility] in [place], who does accept the patient for direct admission into their [place] campus, with no further treatment recommendations given. Ambulance transfer with councilperson accompaniment. surveillance system monitor and IV lactated Ringer's IV bolus were initiated prior to patient. Vital signs and clinical exam were stable at time of transfer. Secondary to lack of ambulance availability of inpatient transfer without sequelae. No IV diazepam and/or Haldol to be administered by the paramedics under our instructions as needed. (2) Anemia SNOMED Code(s): 603848094 Code(s): D64.9 - ANEMIA, UNSPECIFIED Status: Acute Priority: High Onset Date: ~01/23/20 Annotation/Comment:: Note resolution of previous anemia with hemoglobin of 13.8 today with previous hemoglobin of 10.3 on 01/22/20. Mild anemia with apparent history of recurrent hematemesis prior to hospitalization at [facility] with discharge that facility on 01/22/20. EGD was apparently performed with evidence of probable esophagitis, however no apparent varices, gastric ulcer, etc.. Qualifiers: Anemia type: other cause Other causes of anemia: acute posthemorrhagic Qualified Code(s): D62 - Acute posthemorrhagic anemia (3) GERD (gastroesophageal reflux disease) SNOMED Code(s): 980072799 Code(s): K21.9 - GASTRO-ESOPHAGEAL REFLUX DISEASE WITHOUT ESOPHAGITIS Status: Acute Priority: High Onset Date: ~01/20/20 Annotation/Comment:: Apparent EGD as above. High-dose IV Pepcid and IV Protonix given in the emergency room as GI prophylaxis. Qualifiers: Esophagitis presence: with esophagitis Qualified Code(s): K21.0 - Gastro- esophageal reflux disease with esophagitis (4) Hyperuricemia SNOMED Code(s): 19846434 Code(s): E79.0 - HYPERURICEMIA W/O SIGNS OF INFLAM ARTHRIT AND TOPHACEOUS DIS Status: Acute Priority: Medium Onset Date: 01/23/20 Annotation/Comment:: Likely secondary to his alcohol abuse. Observe for now. No significant arthritic complaints, gout attack, etc. (5) Mixed anxiety depressive disorder SNOMED Code(s): 182455460 Code(s): F41.8 - OTHER SPECIFIED ANXIETY DISORDERS Status: Chronic Priority: High Annotation/Comment:: Note significant alcohol abuse history as above. Per history from his sister on 01/22/20 the patient had been homeless for the last few years with little family contact. Patient has currently been living with his parents after alcohol treatment as above. Likely transfer to [facility] in [place] for stabilization of the patient for further inpatient alcohol treatment, psychiatric treatment, etc.. Emotional support was provided to the patient and his parents. - Problem List Review Problem List Initiated/Reviewed/Updated: Yes - My Orders Last 24 Hours: My Active Orders 04/01/20 17:42 Obtain Past Medical Record [OM.PC] Urgent Peripheral IV Insertion Adult [OM.PC] Stat Resuscitation Status Stat 04/01/20 17:43 Peripheral IV Care [RC] . DIRECTED 04/01/20 18:46 Cardiac Monitoring [RC] . DIRECTED - Assessment/Plan Last 24 Hours: My Active Orders 04/01/20 17:42 Obtain Past Medical Record [OM.PC] Urgent Peripheral IV Insertion Adult [OM.PC] Stat Resuscitation Status Stat 04/01/20 17:43 Peripheral IV Care [RC] . DIRECTED 04/01/20 18:46 Cardiac Monitoring [RC] . DIRECTED Assessment:: As above Plan: As above. Extensive precautions were given to the patient and his parents, who a re in agreement with the treatment plan.
[2020-04-01] MEDS: Sodium Chloride 0.9% 10 ML Syringe FLUSH PRN ×3 (18:06→18:24)
[2020-04-01 18:17] LABS: PTT,PARTIAL THROMBOPLSTIN TIME 24.7 SEC (24.5-32.8)
[2020-04-01 18:29] LABS: CHLORIDE,CL 108 mmol/L (98-107); SODIUM,NA 145 mmol/L (136-145)
[2020-04-01] MEDS ORDERED: Haloperidol Lactate 5 MG/ML SDV IVPUSH ONE (19:05)
[2020-04-01] MEDS ORDERED: Lactated Ringers 1,000 ML IV SCH (20:15)
[2020-04-01 20:38] LABS: BARBITURATE SCREEN,URINE NEGATIVE (NEGATIVE); BENZODIAZEPINES SCREEN,URINE NEGATIVE (NEGATIVE); EDDP,URINE SCREEN NEGATIVE (NEGATIVE); TCA SCREEN,URINE NEGATIVE (NEGATIVE); THC SCREEN,URINE 50 NG/ML NEGATIVE (NEGATIVE)
== END 2020-04-01 20:25 ==
LOC: LL.ED 17:24
DX: F10.129 Alcohol abuse with intoxication, unspecified (principal); Y90.8 Blood alcohol level of 240 mg/100 ml or more; K21.0 Gastro-esophageal reflux disease with esophagitis; E79.0 Hyperuricemia without signs of inflammatory arthritis and tophaceous disease; F41.8 Other specified anxiety disorders; F17.220 Nicotine dependence, chewing tobacco, uncomplicated; F17.290 Nicotine dependence, other tobacco product, uncomplicated; F17.210 Nicotine dependence, cigarettes, uncomplicated; Z79.899 Other long term (current) drug therapy
CPT/HCPCS: 36415; 80053; 80305-QW; 80307; 82140; 82150; 83605; 83690; 83735; 84550; 85025; 85610; 85730; 96374; 96375; 96376; 99284; 99285-25; C9113; J1630; J3360; J3490; J7120

== ENCOUNTER 2021-04-22 17:02 | Emergency (ER) | payer SELFPAY ==
--- NOTE | 2021-04-22 17:22 | EDM.PDOC ---
ED HPI GENERAL MEDICAL PROBLEM - General Chief Complaint: Gastrointestinal Problem Stated Complaint: vomiting, anxiety Time Seen by Provider: 04/22/21 17:13 Source of Information: Reports: Patient, Family - History of Present Illness INITIAL COMMENTS - FREE TEXT/NARRATIVE: Vinayak is a 46 y/o male who is brought to the ER by his mother for nausea and vomiting that started about 1030 this AM. He also is very anxious and states "I've been under alot of stress lately." He does admit to alcohol use yesterday. Denies any drug use. He apparently lives with his parents and he has had some alcohol abuse in the past. He has tried to take a Sertaline today, but vomited it right up. Can't keep anything down. - Related Data Allergies Allergy/AdvReac Type Severity Reaction Status Date / Time No Known Allergies Allergy Verified 04/22/21 17:02 Home Meds: Home Meds Ondansetron [Zofran] 8 mg PO Q8H #10 tab 04/22/21 [Rx] Past Medical History HEENT History: Reports: Hard of Hearing. Denies: Impaired Vision Cardiovascular History: Reports: None. Denies: Aneurysm, Arrhythmia, Blood Clots/VTE/DVT, CAD, Hypertension, Syncope Respiratory History: Reports: None. Denies: Asthma, COPD, PE Gastrointestinal History: Reports: GERD, GI Bleed, PUD, Other (See Below). Denies: Hepatitis, Pancreatitis Other Gastrointestinal History: Probable upper GI bleed in December 2019 with hospital discharge from [facility] in [place], [place] on 01/22/20. Possible erosive esophagitis with no apparent varicoceles by EGD. Genitourinary History: Reports: None. Denies: Acute Renal Failure, Chronic Renal Insuffiency, Renal Calculus, STD Musculoskeletal History: Reports: Fracture, Gout, Other (See Below). Denies: Arthritis, Osteoarthritis Other Musculoskeletal History: Right fourth metacarpal fracture. Neurological History: Reports: Seizure, Other (See Below). Denies: Cerebral Aneurysms, Concussion, CVA, Head Trauma, Migraines, TIA Other Neuro History: Possible seizure versus pseudoseizure on 01/23/20 with no known previous history of seizures or DTs despite alcohol abuse history. Psychiatric History: Reports: Addiction, Anxiety, Depression, Emotional Problems, Hallucinations, Other (See Below). Denies: Abuse, Victim of, ADD, ADHD, Dementia, Psych Hospitalization(s), PTSD, Suicide Attempt, Suicidal Ideation Other Psychiatric History: History of alcohol abuse since about age 21 with previous outpatient alcohol treatment program and previous 30 day inpatient alcohol and psychiatric treatment at [facility] in January 2020. Hallucinations secondary to alcohol abuse in early 2019. Endocrine/Metabolic History: Reports: Hypokalemia, Other (See Below) Other Endocrine/Metabolic History: Hypocalcemia. Immunologic History: Reports: Immunosuppression, Other (See Below). Denies: AIDS, HIV, SLE Other Immunologic History: Alcohol abuse. Immunoglobulin deficiency by patient history? Oncologic (Cancer) History: Reports: None Dermatologic History: Reports: None. Denies: Eczema, Psoriasis - Infectious Disease History Infectious Disease History: Reports: Mononucleosis. Denies: C-Difficile, Meningitis, MRSA, RSV, TB - Past Surgical History Head Surgeries/Procedures: Reports: None HEENT Surgical History: Reports: Adenoidectomy, Tonsillectomy, Other (See Below). Denies: Myringotomy w Tube(s), Oral Surgery Other HEENT Surgeries/Procedures: Tonsillectomy and adenoidectomy as a child. Cardiovascular Surgical History: Reports: None. Denies: Varicose Respiratory Surgical History: Reports: None. Denies: Thoracentesis GI Surgical History: Reports: EGD, Other (See Below). Denies: Appendectomy, Cholecystectomy, Hernia, Abdominal, Hernia, Inguinal, Hernia Repair/Other Other GI Surgeries/Procedures: EGD in December 2019 with results as above. Male Surgical History: Reports: Circumcision, Other (See Below). Denies: Vasectomy Other Male Surgeries/Procedures: Circumcision as an infant Neurological Surgical History: Reports: None. Denies: C-Spine Musculoskeletal Surgical History: Reports: ORIF. Denies: Arthroscopic Procedure, Carpal Tunnel, Ganglion Cyst, Joint Replacement, Shoulder Surgery Other Musculoskeletal Surgeries/Procedures:: Pin Placement of the right fourth metacarpal bone. Oncologic Surgical History: Reports: None Dermatological Surgical History: Reports: None - Past Imaging History Past Imaging History: Reports: CAT Scan (Possible CT of the head at [facility] in December versus January 2020) Social & Family History - Living Situation & Occupation Living situation: Reports: (2 children), with Family (Lives with parents since discharge from [facility] in [place] in February 2020. Previous homelessness.) Occupation: Unemployed Review of Systems - Review of Systems Review Of Systems: See Below Constitutional: Reports: No Symptoms Ears: Reports: No Symptoms Nose: Reports: No Symptoms Mouth/Throat: Reports: No Symptoms Respiratory: Reports: No Symptoms Cardiovascular: Reports: No Symptoms GI/Abdominal: Reports: Nausea, Vomiting Genitourinary: Reports: No Symptoms Musculoskeletal: Reports: No Symptoms Skin: Reports: No Symptoms Neurological: Reports: Tingling (fingers) Psychiatric: Reports: Anxiety ED EXAM, GENERAL - Physical Exam Exam: See Below General Appearance: Alert, WD/WN, Anxious (Adult male, appears to be very anxious adn his hands are shaking. He is crying and barely able to calm down toanswer questions.) Eye Exam: Bilateral Eye: PERRL Ears: Hearing Grossly Normal Nose: Normal Inspection, Normal Mucosa Throat/Mouth: Normal Voice Head: Atraumatic, Normocephalic Neck: Normal Inspection, Supple Respiratory/Chest: No Respiratory Distress, Lungs Clear, Chest Non-Tender Cardiovascular: Normal Peripheral Pulses, Regular Rate, Rhythm GI/Abdominal: Normal Bowel Sounds, Soft, Non-Tender (Male) Exam: Deferred Rectal (Males) Exam: Deferred Back Exam: Normal Inspection Extremities: Normal Inspection, Normal Range of Motion, Normal Capillary Refill Neurological: Alert, Oriented, CN II-XII Intact Psychiatric: Anxious, Tearful Skin Exam: Warm, Dry, Intact Lymphatic: No Adenopathy Course - Vital Signs Text/Narrative:: 1713 The patient was seen by the [facility]. Labs ordered. He was given a liter of NS, Lorazepam 1mg IVP, and & Zofran 4mg IVP. 1800 Feeling better now. Some labs reviewed. Mg=1.6, will replace with MgSO4 1gm IVPB and MagOx 400mg po x 1. WBC=16.4, Neuts=84.9%, some abdominal pain,will obtain CT Abd/pelvis W. CMP reviewed, note Gap 32.6, glucose 155, probable vomiting as cause. Also very anxious yet although improved, but will repeat Lorazepam 1mg IVP. [address] CT results back, no acute findings, notes some distal esophagitis or hiatal hernia, will have pt set up EGD with PCP. Patient much calmer now. GI cocktail has helped with the nausea. Discussed findings with the patient. He was sent home with Zofran rx and written instructions. He left the ER in stable condition with family. - Orders/Labs/Meds Orders: Active Orders 24 hr Category Date Time Status AMYLASE [CHEM] Stat Lab 04/22/21 17:17 Ordered CBC WITH AUTO DIFF [HEME] Stat Lab 04/22/21 17:17 Ordered COMPREHENSIVE METABOLIC PN,CMP [CHEM] Stat Lab 04/22/21 17:17 Ordered DRUG SCREEN, URINE [URCHEM] Stat Lab 04/22/21 17:18 Ordered ETHANOL BLOOD MEDICAL [CHEM] Stat Lab 04/22/21 17:17 Ordered LIPASE [CHEM] Stat Lab 04/22/21 17:17 Ordered MAGNESIUM [CHEM] Stat Lab 04/22/21 17:17 Ordered UA RFX EZIO AND CULT IF INDIC [URIN] Stat Lab 04/22/21 17:17 Ordered Sodium Chloride 0.9% [Normal Saline] 1,000 ml Med 04/22/21 17:19 Ordered IV .BOLUS Sodium Chloride 0.9% [Saline Flush] Med 04/22/21 17:17 Ordered 10 ml FLUSH ASDIRECTED PRN Saline Lock Insert [OM.PC] Stat Oth 04/22/21 17:17 Ordered Medication Orders Sodium Chloride (Normal Saline) 1,000 mls @ 999 mls/hr IV .BOLUS ONE Stop: 04/22/21 18:19 Sodium Chloride (Sodium Chloride 0.9% 10 Ml Syringe) 10 ml FLUSH ASDIRECTED PRN PRN Reason: Keep Vein Open Meds: Medications Generic Name Dose Route Start Last Admin Trade Name Freq PRN Reason Stop Dose Admin Sodium Chloride 1,000 mls @ 999 mls/hr 04/22/21 17:19 Normal Saline IV 04/22/21 18:19 .BOLUS ONE Sodium Chloride 10 ml 04/22/21 17:17 Sodium Chloride 0.9% 10 Ml Syringe FLUSH ASDIRECTED PRN Keep Vein Open Discontinued Medications Generic Name Dose Route Start Last Admin Trade Name Freq PRN Reason Stop Dose Admin Lorazepam 1 mg 04/22/21 17:18 Lorazepam 2 Mg/Ml Sdv IVPUSH 04/22/21 17:19 STAT ONE Ondansetron HCl 4 mg 04/22/21 17:18 Ondansetron 4 Mg/2 Ml Sdv IVPUSH 04/22/21 17:19 ONETIME ONE - Radiology Interpretation Free Text/Narrative:: CT Abd/Pelvis W=no acute findings, notes possible distal esophagitis/hiatal hernia (See final report) Departure - Departure Time of Disposition: 19:53 Disposition: Home, Self-Care 01 Condition: Good Clinical Impression: Anxiety, Epigastric burning sensation, Hypomagnesemia Nausea & vomiting Qualifiers: Vomiting type: unspecified Vomiting Intractability: non-intractable Qualified Code(s): R11.2 - Nausea with vomiting, unspecified - Discharge Information Prescriptions: Ondansetron [Zofran] 8 mg PO Q8H #10 tab Instructions: Nausea and Vomiting, Adult, [id number], Managing Anxiety, Adult Referrals: PCP,None [Primary Care Provider] - Forms: ED Department Discharge Additional Instructions: -Zofran 8mg oral every 8 hours as needed for nausea#10(Rx) -May use OTC Prilosec 20mg oral daily -Your magnesium was low and you were given replacement -Find ways to manage stress and decrease anxiety. If you are unable to do this on your own, seek care from a PCP. -Diet as tolerates -Make an appt with a Primary Care Clinic and you need to have a referral set up for an EGD (Upper Endoscopy) to evaluate you GI symptoms. -Return to the ER as needed - My Orders Last 24 Hours: My Active Orders 04/22/21 17:17 AMYLASE [CHEM] Stat CBC WITH AUTO DIFF [HEME] Stat COMPREHENSIVE METABOLIC PN,CMP [CHEM] Stat ETHANOL BLOOD MEDICAL [CHEM] Stat LIPASE [CHEM] Stat MAGNESIUM [CHEM] Stat UA RFX EZIO AND CULT IF INDIC [URIN] Stat Sodium Chloride 0.9% [Saline Flush] 10 ml FLUSH ASDIRECTED PRN Saline Lock Insert [OM.PC] Stat 04/22/21 17:18 DRUG SCREEN, URINE [URCHEM] Stat 04/22/21 17:19 Sodium Chloride 0.9% [Normal Saline] 1,000 ml IV .BOLUS - Assessment/Plan Last 24 Hours: My Active Orders 04/22/21 17:17 AMYLASE [CHEM] Stat CBC WITH AUTO DIFF [HEME] Stat COMPREHENSIVE METABOLIC PN,CMP [CHEM] Stat ETHANOL BLOOD MEDICAL [CHEM] Stat LIPASE [CHEM] Stat MAGNESIUM [CHEM] Stat UA RFX EZIO AND CULT IF INDIC [URIN] Stat Sodium Chloride 0.9% [Saline Flush] 10 ml FLUSH ASDIRECTED PRN Saline Lock Insert [OM.PC] Stat 04/22/21 17:18 DRUG SCREEN, URINE [URCHEM] Stat 04/22/21 17:19 Sodium Chloride 0.9% [Normal Saline] 1,000 ml IV .BOLUS Assessment:: 1)Nausea & Vomiting 2)Anxiety 3)Hypomagnesia 4)Epigastric Abdominal Pain Plan: As above
[2021-04-22] MEDS: LORazepam 2 MG/ML SDV IVPUSH ONE ×2 (17:30→18:19)
[2021-04-22] MEDS: Ondansetron 4 MG/2 ML SDV IVPUSH ONE (17:30)
[2021-04-22] MEDS: Sodium Chloride 0.9% 1,000 ML IV ONE (17:57)
[2021-04-22 18:02] LABS: CHLORIDE,CL 99 mmol/L (98-107); SODIUM,NA 143 mmol/L (136-145)
[2021-04-22 18:03] LABS: ANION GAP 32.6 meq/L (7-15)
[2021-04-22] MEDS: Thiamine 100 MG in Sodium Chloride 0.9% 100 ML IV ONE (18:17)
[2021-04-22] MEDS ORDERED: Iopamidol 612 MG/ML 100 ML Bottle ONE (18:47)
[2021-04-22] MEDS: Magnesium Oxide 400 MG Tab PO ONE (19:02)
[2021-04-22] MEDS: Magnesium Sulfate/D5W 1 GM/100 ML Premix Bag IV STA (19:02)
[2021-04-22] MEDS: Sodium Chloride 0.9% 10 ML Syringe FLUSH PRN (19:03)
[2021-04-22] MEDS: Iopamidol 612 MG/ML 100 ML Bottle IVPUSH STA (19:08)
[2021-04-22] MEDS: GI Cocktail Oral Solution 30 ML PO ONE (19:38)
[2021-04-23 02:12] LABS: BARBITURATE SCREEN,URINE NEGATIVE (NEGATIVE); BENZODIAZEPINES SCREEN,URINE NEGATIVE (NEGATIVE); EDDP,URINE SCREEN NEGATIVE (NEGATIVE); TCA SCREEN,URINE NEGATIVE (NEGATIVE); THC SCREEN,URINE 50 NG/ML NEGATIVE (NEGATIVE)
[2021-04-23 02:13] LABS: BUPRENORPHINE SCREEN,URINE NEGATIVE (NEGATIVE)
== END 2021-04-22 20:25 | disposition home or self-care (01) ==
LOC: LL.ED 17:02
DX: F41.9 Anxiety disorder, unspecified (principal); E83.42 Hypomagnesemia; R20.8 Other disturbances of skin sensation
CPT/HCPCS: 36415; 74177; 80053; 80305; 80307; 81001; 82150; 83690; 83735; 85025; 96365; 96367; 96375; 96376; 99284; A9270; J2060; J2405; J3411; J3475; J7030; Q9967

== ENCOUNTER 2024-09-15 20:01 | Emergency (ER) | payer SELFPAY ==
[2024-09-15 20:15] LABS: BASOPHILS ABSOLUTE AUTO 0.06 K/uL (0.00-0.20); BASOPHILS PERCENT AUTO 0.3 % (0.0-2.0); HEMATOCRIT 45.3 % (39.0-49.0); HEMOGLOBIN 16.1 g/dL (13.1-16.8); IMMATURE GRAN ABSOLUTE AUTO 0.06 10^3/uL (0.00-0.04); IMMATURE GRAN PERCENT AUTO 0.3 % (0.0-0.4); LYMPHOCYTES ABSOLUTE AUTO 2.53 K/uL (0.50-3.50); LYMPHOCYTES PERCENT AUTO 14.1 % (10.0-50.0); MEAN CORPUSCULAR HEMOGLOBIN 32.9 pg (28.2-33.3); MEAN CORPUSCULAR HGB CONC 35.5 g/dL (31.7-36.0); MEAN CORPUSCULAR VOLUME 92.4 fL (84.0-98.0); MONOCYTES ABSOLUTE AUTO 1.18 K/uL (0.00-1.00); MONOCYTES PERCENT AUTO 6.6 % (2.0-14.0); NEUTROPHILS ABSOLUTE AUTO 14.07 K/uL (1.40-7.00); NEUTROPHILS PERCENT AUTO 78.7 % (45.0-80.0); PLATELET COUNT,PLT 301 K/uL (150-350); RED CELL DISTRIBUTION WIDTH 12.2 % (11.2-14.1); WHITE BLOOD CELL COUNT,WBC 17.9 K/uL (4.0-10.2)
[2024-09-15] MEDS: Promethazine 25 MG/ML SDV IM ONE (20:25)
[2024-09-15] MEDS: Ondansetron 4 MG/2 ML SDV IVPUSH ONE ×2 (20:25→21:14)
[2024-09-15] MEDS: Sodium Chloride 0.9% 1,000 ML IV ONE (20:31)
[2024-09-15 20:44] LABS: ALBUMIN 3.4 g/dL (3.4-5.0); ALKALINE PHOSPHATASE 141 IU/L (46-116); ASPARTATE AMNIOTRANSFERASE,AST 74 U/L (15-37); BILIRUBIN TOTAL 0.9 mg/dL (0.2-1.0); BLOOD UREA NITROGEN,BUN 9 mg/dL (7-18); CALCIUM 9.7 mg/dL (8.5-10.1); CARBON DIOXIDE,CO2 25.7 mmol/L (21.0-32.0); CHLORIDE,CL 92 mmol/L (98-107); CREATININE 1.81 mg/dL (0.51-1.17); GLUCOSE RANDOM 111 mg/dL (70-99); MAGNESIUM 1.6 mg/dL (1.8-2.4); POTASSIUM,K 3.6 mmol/L (3.5-5.1); PROTEIN TOTAL,TP 8.4 g/dL (6.4-8.2); SODIUM,NA 144 mmol/L (136-145)
[2024-09-15 20:46] LABS: ANION GAP 29.9 meq/L (7-15); ESTIMATED GFR 46 mL/min (>=60)
[2024-09-15] MEDS: LORazepam 2 MG/ML SDV IVPUSH ONE ×2 (20:47→23:44)
[2024-09-15] MEDS ORDERED: LORazepam 2 MG/ML SDV IVPUSH ONE (20:49)
[2024-09-15] MEDS: Diltiazem 25 MG/5 ML SDV IVPUSH ONE (20:50)
[2024-09-15] MEDS: Magnesium Sulfate/Water Premix 2 GM in Premix Bag 1 BAG IV ONE (21:00)
[2024-09-15] MEDS: Potassium Bicarbonate/Cit Ac 20 MEQ Effervescent Tab PO ONE ×2 (21:02→22:29)
[2024-09-15] MEDS: Lactated Ringers 1,000 ML IV ONE (21:30)
[2024-09-15 21:33] LABS: ALANINE AMINOTRANSFERASE,ALT 32 U/L (12-78)
[2024-09-15] MEDS: cefTRIAXone 1 GM Vial IVPUSH ONE (22:28)
[2024-09-15] MEDS: Ondansetron 4 MG/2 ML SDV ONE (22:32)
[2024-09-15] MEDS: Promethazine 25 MG/ML SDV ONE (22:32)
[2024-09-15] MEDS: Lactated Ringers 1,000 ML IV SCH (22:54)
[2024-09-15 23:30] LABS: PCO2 VENOUS,POC 38 mmHg (41-51); PH VENOUS,POC 7.51 (7.31-7.41); PO2 VENOUS,POC 58 mmHg
[2024-09-15 23:31] LABS: APPEARANCE,URINE SLIGHTLY CLOUDY; BILIRUBIN,URINE NEGATIVE (NEGATIVE); COLOR,URINE YELLOW; GLUCOSE,URINE NEGATIVE (NEGATIVE); KETONES,URINE 40 mg/dL (NEGATIVE); LEUKOCYTE ESTERASE,URINE NEGATIVE (NEGATIVE); NITRITE,URINE NEGATIVE (NEGATIVE); OCCULT BLOOD,URINE NEGATIVE (NEGATIVE); PROTEIN,URINE 100 mg/dL (NEGATIVE)
[2024-09-15 23:31] LABS: HCO3 VENOUS,POC 30 mmol/L (23-28); O2 SATURATION VENOUS,POC 92 %
[2024-09-15 23:36] LABS: AMPHETAMINES SCREEN, URINE NEGATIVE (NEGATIVE); BARBITURATE SCREEN,URINE NEGATIVE (NEGATIVE); BENZODIAZEPINES SCREEN,URINE POSITIVE (NEGATIVE); COCAINE METABOLITES,URINE NEGATIVE (NEGATIVE); EDDP,URINE SCREEN NEGATIVE (NEGATIVE); METHAMPHETAMINES SCREEN, URINE NEGATIVE (NEGATIVE); TCA SCREEN,URINE NEGATIVE (NEGATIVE); THC SCREEN,URINE 50 NG/ML NEGATIVE (NEGATIVE)
[2024-09-15 23:37] LABS: BUPRENORPHINE SCREEN,URINE NEGATIVE (NEGATIVE); OXYCODONE SCREEN,URINE NEGATIVE (NEGATIVE)
[2024-09-15 23:38] LABS: BACTERIA,URINE RARE /HPF (NONE TO FEW); EPITHELIAL CELLS,URINE RARE /LPF; GRANULAR CASTS,URINE OCCASIONAL; HYALINE CASTS,URINE MODERATE; MUCUS,URINE MANY /LPF (NEGATIVE); RBC,URINE 0-5 /HPF; WBC,URINE 0-5 /HPF
[2024-09-15] MEDS: Diltiazem 25 MG/5 ML SDV ONE (23:41)
[2024-09-15] MEDS: Sodium Chloride 0.9% 10 ML Syringe FLUSH PRN (23:45)
== END 2024-09-15 23:57 ==
LOC: LL.ED 20:01
DX: F10.939 Alcohol use, unspecified with withdrawal, unspecified (principal); R00.0 Tachycardia, unspecified; E86.0 Dehydration
CPT/HCPCS: 36415; 71045; 80053; 80305-QW; 80307; 81001; 82803; 83605; 83735; 85025; 87040; 87428-QW; 93005; 93010; 96361; 96365; 96372; 96375; 96376; 99284; 99285-25; A9270-GY; J0696; J2060; J2405; J2550; J3475; J3490; J7030; J7120

== ENCOUNTER 2025-02-03 00:58 | Emergency (ER) | payer MEDICAID ==
[2025-02-03 01:30] LABS: BASOPHILS ABSOLUTE AUTO 0.05 K/uL (0.00-0.20); BASOPHILS PERCENT AUTO 0.7 % (0.0-2.0); EOSINOPHILS ABSOLUTE AUTO 0.08 K/uL (0.00-0.50); EOSINOPHILS PERCENT AUTO 1.1 % (0.0-5.0); HEMATOCRIT 34.5 % (39.0-49.0); HEMOGLOBIN 12.6 g/dL (13.1-16.8); IMMATURE GRAN ABSOLUTE AUTO 0.01 10^3/uL (0.00-0.04); IMMATURE GRAN PERCENT AUTO 0.1 % (0.0-0.4); LYMPHOCYTES ABSOLUTE AUTO 1.81 K/uL (0.50-3.50); LYMPHOCYTES PERCENT AUTO 24.7 % (10.0-50.0); MEAN CORPUSCULAR HEMOGLOBIN 33.2 pg (28.2-33.3); MEAN CORPUSCULAR HGB CONC 36.5 g/dL (31.7-36.0); MEAN CORPUSCULAR VOLUME 90.8 fL (84.0-98.0); MONOCYTES ABSOLUTE AUTO 0.59 K/uL (0.00-1.00); NEUTROPHILS PERCENT AUTO 65.4 % (45.0-80.0); PLATELET COUNT,PLT 173 K/uL (150-350); RED CELL DISTRIBUTION WIDTH 12.5 % (11.2-14.1); WHITE BLOOD CELL COUNT,WBC 7.3 K/uL (4.0-10.2)
[2025-02-03] MEDS: Potassium Bicarbonate/Cit Ac 20 MEQ Effervescent Tab PO ONE ×5 (01:41→08:50)
[2025-02-03 01:45] LABS: ALANINE AMINOTRANSFERASE,ALT 33 U/L (12-78); ALBUMIN 3.8 g/dL (3.4-5.0); ALKALINE PHOSPHATASE 74 IU/L (46-116); ASPARTATE AMNIOTRANSFERASE,AST 51 U/L (15-37); BILIRUBIN TOTAL 0.9 mg/dL (0.2-1.0); BLOOD UREA NITROGEN,BUN 8 mg/dL (7-18); CALCIUM 9.6 mg/dL (8.5-10.1); CARBON DIOXIDE,CO2 36.6 mmol/L (21.0-32.0); CHLORIDE,CL 93 mmol/L (98-107); CREATININE 1.18 mg/dL (0.51-1.17); ETHANOL BLOOD MEDICAL 0.002 g/dL (0.000-0.080); GLUCOSE RANDOM 97 mg/dL (70-99); MAGNESIUM 1.4 mg/dL (1.8-2.4); SODIUM,NA 135 mmol/L (136-145)
[2025-02-03 01:46] LABS: ANION GAP 7.6 meq/L (7-15); ESTIMATED GFR 76 mL/min (>=60)
[2025-02-03 01:47] LABS: POTASSIUM,K 2.2 mmol/L (3.5-5.1)
[2025-02-03] MEDS ORDERED: NS + KCl 20mEq/L 1,000 ML IV SCH (02:00)
[2025-02-03] MEDS: Magnesium Oxide 400 MG Tab PO ONE (02:11)
[2025-02-03] MEDS: D5 1/2 NS w/ 20 mEq/L KCl 1,000 ML IV SCH (02:11)
[2025-02-03] MEDS: Sodium Chloride 0.9% 10 ML Syringe FLUSH PRN (02:12)
[2025-02-03] MEDS: Gentamicin 0.1% Crm 15 GM Tube ONE (02:18)
== END 2025-02-03 09:45 | disposition home or self-care (01) ==
LOC: LL.ED 00:58
DX: E87.6 Hypokalemia (principal); Z79.899 Other long term (current) drug therapy
CPT/HCPCS: 36415; 80053; 80307; 83735; 84132; 85025; 93005; 96365; 96366; 99285-25; A9270-GY; J3480